=== PATIENT | male | born 1930 | race Caucasian/White ===

== ENCOUNTER 2018-01-09 15:58 | Inpatient (IN) | payer MEDICARE ==
[~2018-01-09] VITALS: Ht 180.3 cm; Wt 90.3 kg
[2018-01-09] MEDS ORDERED: FURO40 PO (16:25)
[2018-01-09] MEDS ORDERED: Icaps Mv Table1 EACH PO (16:26)
[2018-01-09] MEDS ORDERED: METO25ER PO (16:26)
[2018-01-09] MEDS ORDERED: XARELTO20 MG PO (16:27)
[2018-01-09] MEDS ORDERED: TRADJENTA5 MG PO (16:27)
[2018-01-09] MEDS ORDERED: Amiodarone HCl200 MG PO (16:28)
[2018-01-09] MEDS ORDERED: Advair Hfa 230-12 GM INH (16:28)
[2018-01-09] MEDS ORDERED: METF500C PO (16:29)
[2018-01-09] MEDS ORDERED: Lovastatin20 MG PO (16:29)
[2018-01-09] MEDS ORDERED: GLIP5 PO (16:29)
[2018-01-09] MEDS ORDERED: GABA600 PO (16:29)
[2018-01-09] MEDS ORDERED: Zestril40 MG PO (16:29)
[2018-01-09] MEDS ORDERED: TIMO10T BOTHEYES (16:30)
[2018-01-09 18:47] LABS: Troponin I 0.031 ng/mL (0.000-0.040)
[2018-01-09 19:26] LABS: Alanine Aminotransfer (ALT/SGP 57 U/L (12-78); Albumin, Blood 3.5 g/dL (3.4-5.0); Albumin/Globulin Ratio 1.1 (0.8-1.8); Alk Phos 80 U/L (50-136); Anion Gap 13 mmol/L (6-16); Aspartate Aminotrans (AST/SGOT 31 U/L (12-37); Bilirubin, Total 0.6 mg/dL (0.1-1.0); Blood Urea Nitrogen 27 mg/dL (8-24); CO2, Blood 22 mmol/L (21-32); CPK Creatine Kinase 86 U/L (39-308); Calcium, Blood 9.1 mg/dL (8.5-10.1); Chloride, Blood 105 mmol/L (98-108); Creatine Kinase MB 3.7 ng/mL (0.0-3.6); Creatine Kinase MB Index 4.3 (0.0-4.0); Globulin, Blood 3.2 g/dL (2.2-4.0); Glomerular Filtration Rate >60 (60-); Glucose, Blood 148 mg/dL (70-99); Phosphorus, Blood 3.4 mg/dL (2.5-4.9); Potassium, Blood 4.6 mmol/L (3.5-5.5); Sodium, Blood 140 mmol/L (136-145); Total Protein, Blood 6.7 g/dL (6.4-8.2)
[2018-01-09 19:39] LABS: Creatinine, Blood 0.98 mg/dL (0.60-1.20)
[2018-01-09 19:44] LABS: Magnesium, Blood 1.5 mg/dL (1.6-2.4)
[2018-01-09 20:04] LABS: Thyroid Stimulating Hormone 4.01 uIU/mL (0.360-4.800)
[2018-01-09] MEDS ORDERED: Klor-Con 1010 MEQ PO (21:04)
[2018-01-09] MEDS ORDERED: FURO20 PO (21:09)
[2018-01-10 00:52] LABS: Creatine Kinase MB Index 4.7 (0.0-4.0); Troponin I 0.042 ng/mL (0.000-0.040)
[2018-01-10 07:03] LABS: Alanine Aminotransfer (ALT/SGP 59 U/L (12-78); Albumin, Blood 3.7 g/dL (3.4-5.0); Albumin/Globulin Ratio 1.2 (0.8-1.8); Alk Phos 81 U/L (50-136); Anion Gap 10 mmol/L (6-16); Aspartate Aminotrans (AST/SGOT 29 U/L (12-37); Bilirubin, Total 0.7 mg/dL (0.1-1.0); Blood Urea Nitrogen 26 mg/dL (8-24); Bun/Creatinine Ratio 28.6 (12.0-20.0); CO2, Blood 24 mmol/L (21-32); CPK Creatine Kinase 90 U/L (39-308); Calcium, Blood 8.8 mg/dL (8.5-10.1); Chloride, Blood 104 mmol/L (98-108); Creatine Kinase MB 4.2 ng/mL (0.0-3.6); Creatine Kinase MB Index 4.7 (0.0-4.0); Creatinine, Blood 0.91 mg/dL (0.60-1.20); Globulin, Blood 3.1 g/dL (2.2-4.0); Glomerular Filtration Rate >60 (60-); Glucose, Blood 169 mg/dL (70-99); Magnesium, Blood 1.7 mg/dL (1.6-2.4); Phosphorus, Blood 3.2 mg/dL (2.5-4.9); Potassium, Blood 4.3 mmol/L (3.5-5.5); Sodium, Blood 138 mmol/L (136-145); Total Protein, Blood 6.8 g/dL (6.4-8.2)
[2018-01-11 05:14] LABS: BASOPHILS ABSOLUTE AUTO 0.06 K/mm3 (0.00-0.23); BASOPHILS PERCENT AUTO 1 % (0-2); EOSINOPHILS ABSOLUTE AUTO 0.24 K/mm3 (0.00-0.68); EOSINOPHILS PERCENT AUTO 3 % (0-6); Hematocrit 42.9 % (37.0-53.0); Hemoglobin 13.6 g/dL (13.5-17.5); IMMATURE GRAN ABSOLUTE AUTO 0.02 K/mm3 (0.00-0.10); IMMATURE GRAN PERCENT AUTO 0 % (0-1); LYMPHOCYTES ABSOLUTE AUTO 1.05 K/mm3 (0.84-5.20); LYMPHOCYTES PERCENT AUTO 14 % (21-46); MONOCYTES PERCENT AUTO 9 % (4-13); Mean Corpuscular HGB Conc 31.7 g/dL (31.5-36.5); Mean Corpuscular Volume 92 fL (80-100); Mean Platelet Volume 10.1 fL (9.1-12.4); NEUTROPHILS ABSOLUTE AUTO 5.42 K/mm3 (1.96-9.15); NEUTROPHILS PERCENT AUTO 72 % (41-73); Platelet Count 226 K/mm3 (150-400); RDW Coefficient Variation 14.6 % (11.7-14.2); RDW Standard Deviation 48.8 fL (35.1-46.3); Red Blood Cell Count 4.69 M/mm3 (4.30-5.90); White Blood Cell Count 7.49 K/mm3 (4.00-11.30)
[2018-01-11 05:33] LABS: Anion Gap 8 mmol/L (6-16); Blood Urea Nitrogen 30 mg/dL (8-24); Bun/Creatinine Ratio 25.6 (12.0-20.0); CO2, Blood 29 mmol/L (21-32); Calcium, Blood 8.9 mg/dL (8.5-10.1); Chloride, Blood 103 mmol/L (98-108); Creatinine, Blood 1.17 mg/dL (0.60-1.20); Glomerular Filtration Rate >60 (60-); Glucose, Blood 121 mg/dL (70-99); Potassium, Blood 4.9 mmol/L (3.5-5.5); Sodium, Blood 140 mmol/L (136-145)
[2018-01-11 15:34] LABS: BASOPHILS ABSOLUTE AUTO 0.08 K/mm3 (0.00-0.23); BASOPHILS PERCENT AUTO 1 % (0-2); EOSINOPHILS ABSOLUTE AUTO 0.23 K/mm3 (0.00-0.68); EOSINOPHILS PERCENT AUTO 3 % (0-6); Hematocrit 42.2 % (37.0-53.0); Hemoglobin 13.5 g/dL (13.5-17.5); IMMATURE GRAN ABSOLUTE AUTO 0.03 K/mm3 (0.00-0.10); IMMATURE GRAN PERCENT AUTO 0 % (0-1); LYMPHOCYTES ABSOLUTE AUTO 1.19 K/mm3 (0.84-5.20); LYMPHOCYTES PERCENT AUTO 15 % (21-46); MONOCYTES ABSOLUTE AUTO 0.79 K/mm3 (0.16-1.47); MONOCYTES PERCENT AUTO 10 % (4-13); Mean Corpuscular HGB 29.1 pg (26.0-34.0); Mean Corpuscular Volume 91 fL (80-100); Mean Platelet Volume 10.2 fL (9.1-12.4); NEUTROPHILS ABSOLUTE AUTO 5.65 K/mm3 (1.96-9.15); NEUTROPHILS PERCENT AUTO 71 % (41-73); Platelet Count 254 K/mm3 (150-400); RDW Coefficient Variation 14.5 % (11.7-14.2); RDW Standard Deviation 48.5 fL (35.1-46.3); Red Blood Cell Count 4.64 M/mm3 (4.30-5.90); White Blood Cell Count 7.97 K/mm3 (4.00-11.30)
[2018-01-12] MEDS ORDERED: ATOR40TA PO (13:52)
[2018-01-12] MEDS ORDERED: ASPI81CH PO (13:54)
[2018-01-12] MEDS ORDERED: LEVO750 PO (13:58)
[2018-01-12] MEDS ORDERED: CEFP200 PO (13:58)
[2018-01-12] MEDS ORDERED: NITR.4SL SL (14:00)
[2018-01-12] MEDS ORDERED: SPIR25 PO (14:00)
[2018-01-12] MEDS ORDERED: ACET325 PO (14:06)
[2018-01-12] MEDS ORDERED: Flonase 0.05% N16 GM (14:07)
== END 2018-01-12 15:25 | disposition home or self-care (01) | DRG 280 ==
LOC: EDSEX 15:58 → ER 15:58 → MEDS 15:59
PROVIDERS: Emergency Medicine; Family Medicine
DX: I11.0 Hypertensive heart disease with heart failure (principal); J18.9 Pneumonia, unspecified organism; I21.9 Acute myocardial infarction, unspecified; I48.1 Persistent atrial fibrillation; I50.23 Acute on chronic systolic (congestive) heart failure; I27.20 Pulmonary hypertension, unspecified; I42.0 Dilated cardiomyopathy; I48.91 Unspecified atrial fibrillation; E11.9 Type 2 diabetes mellitus without complications; E78.5 Hyperlipidemia, unspecified; I35.0 Nonrheumatic aortic (valve) stenosis; I25.10 Atherosclerotic heart disease of native coronary artery without angina pectoris; G89.29 Other chronic pain; Z66 Do not resuscitate; R09.02 Hypoxemia; Z96.1 Presence of intraocular lens; Z79.01 Long term (current) use of anticoagulants; I25.2 Old myocardial infarction; Z85.46 Personal history of malignant neoplasm of prostate; Z90.3 Acquired absence of stomach [part of]; Z98.42 Cataract extraction status, left eye; Z98.41 Cataract extraction status, right eye; Z79.899 Other long term (current) drug therapy; Z79.84 Long term (current) use of oral hypoglycemic drugs
CPT/HCPCS: 36415; 71046; 80048; 80053; 82550; 82553; 82565; 82947; 83036; 83735; 83880; 84100; 84443; 84484; 85025; 93005; 93010; 93306; 94640; 94760; 99285-25; A9270; J0692; J1940; J1956; J7030